=== PATIENT | male | born 1970 | race Caucasian/White ===

== ENCOUNTER → 2022-05-16 | Emergency (ER) | payer OTHER ==
[~2022-05-16] MED LIST: KETOROLAC 10 MG TAB PO ONE; TETANUS,DIPH,PERTUSS(ACELL) VACCINE 0.5 ML SYRINGE IM ONE
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
[2022-05-17 21:09] VITALS: BP 158/87
== END | disposition home or self-care (01) ==
LOC: ED 22:46
DX: S61.411A Laceration without foreign body of right hand, initial encounter (principal); X58.XXXA Exposure to other specified factors, initial encounter; Y93.89 Activity, other specified; Y92.89 Other specified places as the place of occurrence of the external cause; Y99.8 Other external cause status
CPT/HCPCS: 90471; 90715; 99283